=== PATIENT | female | born 1955 | race Caucasian/White ===

== ENCOUNTER → 2016-11-20 | Outpatient (CLI) | payer OTHER ==
[~2016-11-20] MED LIST: ASPI-557 PO; ATOR80TA PO; HYDR-4246 PO; LEVO50TA4 PO; MULT-933 PO; OMEG300C PO
== END ==
LOC: WC.BC 11:01
DX: Z12.31 Encounter for screening mammogram for malignant neoplasm of breast (principal); N64.59 Other signs and symptoms in breast; N64.89 Other specified disorders of breast
CPT/HCPCS: 77063; G0202

== ENCOUNTER → 2016-11-26 | Outpatient (CLI) | payer OTHER | LOC: WC.BC 14:48 | PROVIDERS: ATTEND Registered Nurse | DX: N64.59 Other signs and symptoms in breast (principal); N60.02 Solitary cyst of left breast; R92.2 Inconclusive mammogram | CPT/HCPCS: 76642; G0206 ==